=== PATIENT | female | born 1965 | race Two or more races ===

== ENCOUNTER 2021-01-14 08:14 | Outpatient (CLI) | payer BC, SELFPAY | END 2021-01-14 08:15 | disposition home or self-care (01) | LOC: ANHCOVIDVC 08:14 | PROVIDERS: PCP Family Medicine | DX: Z23 Encounter for immunization (principal) | CPT/HCPCS: 0001A; 91300 ==

== ENCOUNTER 2021-02-04 08:28 | Outpatient (CLI) | payer BC, SELFPAY | END 2021-02-04 08:29 | disposition home or self-care (01) | LOC: ANHCOVIDVC 08:28 | PROVIDERS: PCP Family Medicine | DX: Z23 Encounter for immunization (principal) | CPT/HCPCS: 0002A; 91300 ==